=== PATIENT | male | born 1985 | race Caucasian/White ===

== ENCOUNTER 2018-09-24 17:28 | Emergency (ER) | payer MEDICAID ==
[~2018-09-24] VITALS: Ht 170.2 cm; Wt 74.4 kg
[2018-09-24 18:04] VITALS: BP_SYST 121
[2018-09-24 18:52] VITALS: BP_SYST 127
== END 2018-09-24 18:52 | disposition home or self-care (01) ==
LOC: SED 17:28
DX: J02.8 Acute pharyngitis due to other specified organisms (principal); B97.89 Other viral agents as the cause of diseases classified elsewhere; R03.0 Elevated blood-pressure reading, without diagnosis of hypertension
CPT/HCPCS: 36415; 86403; 87081; 99283